=== PATIENT | male | born 1980 | race Caucasian/White ===

== ENCOUNTER 2020-08-16 12:58 | Inpatient (IN) | payer MEDICAID ==
[~2020-08-16] VITALS: Ht 177.8 cm; Wt 89.8 kg
[2020-08-16 22:10] VITALS: BP 125/81
[2020-08-17 00:48] VITALS: BP 131/63
[2020-08-17 07:57] LABS: BASOPHILS % (AUTO) 0.8 % (0.0-2.0); EOSINOPHILS % (AUTO) 3.6 % (1.0-6.0); HEMATOCRIT 40.8 % (41-53); HEMOGLOBIN 13.8 g/dL (13.5-17.5); LYMPHOCYTES # (AUTO) 1.3 K/uL (1.0-4.8); LYMPHOCYTES % (AUTO) 13.5 % (22.0-44.0); MEAN CORPUSCULAR HEMOGLOBIN 31.3 pg (26.0-34.0); MEAN CORPUSCULAR HGB CONC 33.9 G/dL (31.0-37.0); MEAN CORPUSCULAR VOLUME 92 fL (80-100); MONOCYTES # (AUTO) 0.8 K/uL (0.1-1.0); MONOCYTES % (AUTO) 8.2 % (2.0-9.0); NEUTROPHILS # (AUTO) 7.2 K/uL (1.8-7.7); NEUTROPHILS % (AUTO) 73.9 % (40.0-70.0); PLATELET COUNT (AUTO) 292 K/uL (150-450); RED BLOOD CELL COUNT(AUTO) 4.42 MIL/uL (4.50-5.90); RED CELL DISTRIBUTION WIDTH 14.6 % (11.5-14.5)
[2020-08-17 08:13] LABS: ALANINE AMINOTRANSFERASE 127 U/L (12-78); ALBUMIN 3.1 g/dL (3.4-5.0); ALKALINE PHOSPHATASE 70 U/L (46-116); ANION GAP 8 mmol/L (8-16); ASPARTATE AMINOTRANSFERASE 66 U/L (15-37); BILIRUBIN,TOTAL 0.5 mg/dL (0.1-1.0); CALCIUM, TOTAL 8.5 mg/dL (8.8-10.5); CARBON DIOXIDE 24 mmol/L (22-29); CHLORIDE 106 mmol/L (98-107); CHOL/HDL RATIO 3.1 (4.2-7.3); CHOLESTEROL 129 mg/dL (131-200); CREATININE 0.89 mg/dL (0.60-1.30); FREE T4 (FREE THYROXINE) 1.08 ng/dL (0.76-1.46); GLOMERULAR FILTR. RATE CALC > 60 mL/min (>60); GLUCOSE,RANDOM 88 mg/dL (70-110); HDL CHOLESTEROL 41 mg/dL (40-60); LDL CHOL (CALC.) 67 mg/dL (0-130); POTASSIUM 4.6 mmol/L (3.5-5.1); SODIUM SERUM 138 mmol/L (136-145); TOTAL PROTEIN, SERUM 5.8 g/dL (6.4-8.2); TRIGLYCERIDES 103 mg/dL (15-150); UREA NITROGEN, BLOOD 15 mg/dL (7-18)
[2020-08-17 08:41] VITALS: BP 128/66
[2020-08-17 16:34] VITALS: BP 126/70
[2020-08-17] MEDS: QUEtiapine FUMARATE 100 MG TABLET PO PRN (19:43)
[2020-08-18 02:48] VITALS: BP 122/79
[2020-08-18 09:28] VITALS: BP 102/67
[2020-08-18 16:10] VITALS: BP 129/76
[2020-08-18] MEDS: QUEtiapine FUMARATE 300 MG TABLET PO SCH (20:16)
[2020-08-19 07:07] VITALS: BP 118/75
[2020-08-19 09:11] VITALS: BP 103/58
[2020-08-19] MEDS: BuPROPion HCL XL 150 MG ER TABLET PO SCH (09:41)
[2020-08-19] MEDS: QUEtiapine FUMARATE 100 MG TABLET PO SCH (09:41)
[2020-08-19] MEDS ORDERED: BUPR-93 PO (13:48)
[2020-08-19] MEDS ORDERED: QUET300T2 PO (13:48)
[2020-08-19] MEDS ORDERED: QUET100T PO (13:48)
[2020-08-19 16:10] VITALS: BP 118/64
[2020-08-19] MEDS: QUEtiapine FUMARATE 300 MG TABLET PO SCH (20:27)
[2020-08-20 05:14] VITALS: BP 112/61
[2020-08-20 08:26] VITALS: BP 103/70
[2020-08-20] MEDS: BuPROPion HCL XL 150 MG ER TABLET PO SCH (09:00)
[2020-08-20] MEDS: QUEtiapine FUMARATE 100 MG TABLET PO SCH (09:01)
[2020-08-20 16:23] VITALS: BP 122/60
[2020-08-20] MEDS: QUEtiapine FUMARATE 300 MG TABLET PO SCH (20:03)
[2020-08-21 05:19] VITALS: BP 103/65
[2020-08-21 08:13] VITALS: BP 108/61
[2020-08-21] MEDS: QUEtiapine FUMARATE 100 MG TABLET PO SCH (08:15)
[2020-08-21] MEDS: BuPROPion HCL XL 150 MG ER TABLET PO SCH (08:15)
[2020-08-21 16:32] VITALS: BP 124/90
[2020-08-21] MEDS: QUEtiapine FUMARATE 300 MG TABLET PO SCH (20:01)
[2020-08-22 00:08] VITALS: BP 120/69
[2020-08-22 08:10] LABS: ALANINE AMINOTRANSFERASE 271 U/L (12-78); ALBUMIN 3.2 g/dL (3.4-5.0); ALKALINE PHOSPHATASE 82 U/L (46-116); ANION GAP 6 mmol/L (8-16); ASPARTATE AMINOTRANSFERASE 147 U/L (15-37); BILIRUBIN,TOTAL 0.4 mg/dL (0.1-1.0); CALCIUM, TOTAL 8.4 mg/dL (8.8-10.5); CARBON DIOXIDE 27 mmol/L (22-29); CHLORIDE 108 mmol/L (98-107); GLOMERULAR FILTR. RATE CALC > 60 mL/min (>60); GLUCOSE,RANDOM 81 mg/dL (70-110); POTASSIUM 4.6 mmol/L (3.5-5.1); SODIUM SERUM 141 mmol/L (136-145); TOTAL PROTEIN, SERUM 6.6 g/dL (6.4-8.2); UREA NITROGEN, BLOOD 16 mg/dL (7-18)
[2020-08-22 08:11] LABS: HEMOGLOBIN A1C 5.1 % (3.8-5.6)
[2020-08-22] MEDS: BuPROPion HCL XL 150 MG ER TABLET PO SCH (08:45)
[2020-08-22] MEDS: QUEtiapine FUMARATE 100 MG TABLET PO SCH (08:45)
[2020-08-22 16:19] VITALS: BP 116/65
[2020-08-22] MEDS: LORazepam 2 MG TABLET PO PRN (16:26)
[2020-08-22] MEDS: QUEtiapine FUMARATE 300 MG TABLET PO SCH (20:09)
[2020-08-22] MEDS: ZOLPIDEM TARTRATE 10 MG TABLET PO PRN (21:32)
[2020-08-23 05:40] VITALS: BP 110/62
[2020-08-23 08:45] VITALS: BP 110/70
[2020-08-23] MEDS: LORazepam 2 MG TABLET PO PRN ×3 (09:08→22:28)
[2020-08-23] MEDS: BuPROPion HCL XL 150 MG ER TABLET PO SCH (09:09)
[2020-08-23] MEDS: QUEtiapine FUMARATE 100 MG TABLET PO SCH (09:09)
[2020-08-23] MEDS: QUEtiapine FUMARATE 100 MG TABLET PO PRN (14:24)
[2020-08-23 16:13] VITALS: BP 132/77
[2020-08-23] MEDS: QUEtiapine FUMARATE 300 MG TABLET PO SCH (20:48)
[2020-08-23] MEDS: ZOLPIDEM TARTRATE 10 MG TABLET PO PRN (20:48)
[2020-08-24 01:16] VITALS: BP 142/76
[2020-08-24] MEDS: QUEtiapine FUMARATE 100 MG TABLET PO PRN (01:35)
[2020-08-24 07:57] LABS: COVID AG,FIA SOURCE NASOPHARYNGEAL
[2020-08-24 09:06] VITALS: BP 123/74
[2020-08-24] MEDS: BuPROPion HCL XL 150 MG ER TABLET PO SCH (09:13)
[2020-08-24] MEDS: QUEtiapine FUMARATE 100 MG TABLET PO SCH (09:13)
== END 2020-08-24 11:00 | disposition home or self-care (01) | DRG 750 ==
LOC: B2S 21:29
PROVIDERS: ADMIT Psychiatry & Neurology Psychiatry; ATTEND Psychiatry & Neurology Psychiatry
DX: F25.9 Schizoaffective disorder, unspecified (principal); R45.851 Suicidal ideations; F17.200 Nicotine dependence, unspecified, uncomplicated; F12.90 Cannabis use, unspecified, uncomplicated; Z03.818 Encounter for observation for suspected exposure to other biological agents ruled out
CPT/HCPCS: 83036; 84436; 84439; 84443; 87426